=== PATIENT | male | born 1960 | race Caucasian/White ===

== ENCOUNTER 2017-01-15 07:37 | Emergency (ER) | payer MEDICARE, MEDICAID ==
[2017-01-15 07:44] VITALS: BP 158/116
--- NOTE | 2017-01-15 08:19 | EDM.PDOC ---
ED HPI GENERAL MEDICAL PROBLEM - General Chief Complaint: Lower Extremity Injury/Pain Stated Complaint: LT KNEE PAIN Time Seen by Provider: 01/15/17 07:51 Source of Information: Reports: Patient, RN Notes Reviewed History Limitations: Reports: No Limitations - History of Present Illness INITIAL COMMENTS - FREE TEXT/NARRATIVE: The patient states that he has advanced osteoarthritis of both knees, status post 4 surgeries on the left, 3 on the right. He states that he underwent a left knee injection of a steroid and Synvisc per Dr. Kevin Green's midlevel , Tasha Grayson, this past 01/13/2017. He states that he was doing well until last night, when he was trying to sleep in the left lateral decubitus position and he states that when he flexed his left knee, he developed sudden- onset severe pain lateral to his left patella. The pain resolved, but recurs every time he flexes his left knee. No prior similar symptoms. left lateral knee Pain Score (Numeric/FACES): 9 - Related Data Allergies Allergy/AdvReac Type Severity Reaction Status Date / Time potassium Allergy Nausea and Verified 01/15/17 07:44 Vomiting Home Meds: Home Meds . [No Known Home Meds] 04/11/14 [History] Past Medical History HEENT History: Reports: Other (See Below) (Bilateral keratoconus) Musculoskeletal History: Reports: Osteoarthritis (bilateral knees) Endocrine/Metabolic History: Reports: Obesity/BMI 30+ - Past Surgical History HEENT Surgical History: Reports: Eye Surgery (bilateral corneal transplants), Oral Surgery ([place] teeth extraction), Tonsillectomy GI Surgical History: Reports: Appendectomy Neurological Surgical History: Reports: C-Spine (ACDF) Musculoskeletal Surgical History: Reports: Other (See Below) (Right ankle reconstruction. 4 left knee surgeries (1 open, 3 arthroscopic), 3 right knee arthroscopies) Social & Family History - Family History Family Medical History: Noncontributory - Tobacco Use Smoking Status *Q: Never Smoker Second Hand Smoke Exposure: No - Caffeine Use Caffeine Use: Reports: None - Alcohol Use Alcohol Use History: Yes Days Per Week of Alcohol Use: 0 Alcohol Use Frequency: Rarely - Recreational Drug Use Recreational Drug Use: No - Living Situation & Occupation Living situation: Reports: , Alone Occupation: Retired Review of Systems - Review of Systems Review Of Systems: See Below Constitutional: Reports: No Symptoms Eyes: Reports: No Symptoms Ears: Reports: No Symptoms Nose: Reports: No Symptoms Mouth/Throat: Reports: No Symptoms Respiratory: Reports: No Symptoms Cardiovascular: Reports: No Symptoms GI/Abdominal: Reports: No Symptoms Genitourinary: Reports: No Symptoms Musculoskeletal: Reports: No Symptoms Skin: Reports: No Symptoms Neurological: Reports: No Symptoms Psychiatric: Reports: No Symptoms ED EXAM, GENERAL - Physical Exam Exam: See Below Exam Limited By: No Limitations General Appearance: Alert, WD/WN, No Apparent Distress Extremities: Other (No visible abnormality to the left knee, when compared to the right, such as swelling, effusion, erythema, or ecchymosis. There is tenderness to palpation lateral to the left patella, but no tenderness to either the quadriceps or patellar ligaments. No tenderness or laxity to stressing the lateral collateral ligament. There was a "pop" when stressing the medial collateral ligament. The patient is able to extend the knee to 0, and flex it to approximately 120. No crepitus or clicking noted with PROM. Neurovascular status of the left lower extremity is intact.) Course - Vital Signs Last Recorded V/S: Last Vital Signs Temp 36.6 C 01/15/17 07:41 Pulse 85 01/15/17 07:41 Resp 20 01/15/17 07:41 BP 158/116 H 01/15/17 07:41 Pulse Ox 97 01/15/17 07:41 - Re-Assessments/Exams Free Text/Narrative Re-Assessment/Exam: 01/15/17 08:17 The patient appears to have strained a tendon or ligament lateral to his left patella. There is no suggestion of a fracture, therefore an x-ray to would not be of any use. He may benefit from a MRI. I am recommending he follow-up with Dr. Brown's office. Departure - Departure Time of Disposition: 08:18 Disposition: Home, Self-Care 01 Condition: Good Clinical Impression: Left knee pain - Discharge Information Instructions: Knee Pain Referrals: Ruddy Brown MD [Physician] - Forms: ED Department Discharge Additional Instructions: You were seen in the emergency room for sudden-onset left knee pain. On examination, it appears you have strained a tendon or ligament in the knee. You may benefit from a MRI. Please follow-up with Dr. Brown. If any other problems, please do not hesitate to return to the ER.
== END 2017-01-15 08:40 | disposition home or self-care (01) ==
LOC: JD.ED 07:37
DX: M25.562 Pain in left knee (principal); M17.0 Bilateral primary osteoarthritis of knee; E66.9 Obesity, unspecified; Z68.43 Body mass index [BMI] 50.0-59.9, adult; Z88.8 Allergy status to other drugs, medicaments and biological substances; Z90.49 Acquired absence of other specified parts of digestive tract; Z98.890 Other specified postprocedural states
CPT/HCPCS: 99282; 99283

== ENCOUNTER 2018-07-24 15:11 | Emergency (ER) | payer MEDICAID, MEDICARE ==
[2018-07-24 15:24] VITALS: BP 160/98
--- NOTE | 2018-07-24 16:10 | EDM.PDOC ---
ED HPI GENERAL MEDICAL PROBLEM - General Chief Complaint: Upper Extremity Injury/Pain Stated Complaint: SHOULDER PAIN Time Seen by Provider: 07/24/18 15:15 Source of Information: Reports: Patient History Limitations: Reports: No Limitations - History of Present Illness INITIAL COMMENTS - FREE TEXT/NARRATIVE: 58 y/o male comes to ED today for complaints of R shoulder pain/weakness and a feeling of a "rip" after lifting milk this morning. He has not had anything like this before. He is unable to lift his arm overhead, reach, or externally rotate. PROM is painful. Pain is 10/10 with movement. No other symptoms at this time. No deformities noted on exam. Right Shoulder Pain Score (Numeric/FACES): 10 - Related Data Allergies Allergy/AdvReac Type Severity Reaction Status Date / Time potassium Allergy Nausea and Verified 07/24/18 15:17 Vomiting Home Meds: Home Meds 2 Different Eye Drops. 07/24/18 [History] Naproxen 500 mg PO Q12H 5 Days #10 tablet 07/24/18 [Rx] Past Medical History HEENT History: Reports: Other (See Below) Musculoskeletal History: Reports: Osteoarthritis Endocrine/Metabolic History: Reports: Obesity/BMI 30+ - Past Surgical History HEENT Surgical History: Reports: Eye Surgery, Oral Surgery, Tonsillectomy GI Surgical History: Reports: Appendectomy Neurological Surgical History: Reports: C-Spine Musculoskeletal Surgical History: Reports: Other (See Below) Social & Family History - Family History Family Medical History: Noncontributory - Tobacco Use Smoking Status *Q: Never Smoker - Caffeine Use Caffeine Use: Reports: None - Living Situation & Occupation Living situation: Reports: , Alone Occupation: Retired Review of Systems - Review of Systems Review Of Systems: See Below Constitutional: Reports: No Symptoms. Denies: Chills, Fever Eyes: Reports: No Symptoms Ears: Reports: No Symptoms Respiratory: Reports: No Symptoms Cardiovascular: Reports: No Symptoms GI/Abdominal: Reports: No Symptoms Musculoskeletal: Reports: Shoulder Pain Skin: Reports: No Symptoms Neurological: Reports: Weakness (R shoulder) Psychiatric: Reports: No Symptoms ED EXAM, GENERAL - Physical Exam Exam: See Below Exam Limited By: No Limitations General Appearance: Alert Eye Exam: Bilateral Eye: PERRL Ears: Normal External Exam, Hearing Grossly Normal Head: Atraumatic, Normocephalic Neck: Normal Inspection, Supple, Non-Tender, Full Range of Motion Respiratory/Chest: No Respiratory Distress, Lungs Clear, Normal Breath Sounds, No Accessory Muscle Use, Chest Non-Tender Cardiovascular: Normal Peripheral Pulses, Regular Rate, Rhythm, No Edema, No Gallop, No JVD, No Murmur, No Rub Peripheral Pulses: 3+: Radial (L), Radial (R) GI/Abdominal: Normal Bowel Sounds, Soft, Non-Tender, No Organomegaly, No Distention, No Abnormal Bruit, No Mass Extremities: Normal Inspection, Limited Range of Motion (L shoulder), Other ( TTP R shoulder) Neurological: Alert, Oriented, CN II-XII Intact, Normal Cognition, Normal Gait, Normal Reflexes, No Motor/Sensory Deficits Psychiatric: Normal Affect, Normal Mood Skin Exam: Warm, Dry, Intact, Normal Color, No Rash Course - Vital Signs Last Recorded V/S: Last Vital Signs Temp 96.8 F 07/24/18 15:18 Pulse 104 H 07/24/18 15:18 Resp 20 07/24/18 15:18 BP 160/98 H 07/24/18 15:18 Pulse Ox 97 07/24/18 15:18 Departure - Departure Time of Disposition: 16:11 Disposition: Home, Self-Care 01 Condition: Fair Clinical Impression: Rotator cuff tear - Discharge Information *PRESCRIPTION DRUG MONITORING PROGRAM REVIEWED*: Not Applicable *COPY OF PRESCRIPTION DRUG MONITORING REPORT IN PATIENT ROMI: Not Applicable Prescriptions: Naproxen 500 mg PO Q12H 5 Days #10 tablet Instructions: Shoulder Pain, [id number], Rotator Cuff Tear Referrals: Baylee Bray NP [Primary Care Provider] - Ruddy Brown MD [Physician] - Additional Instructions: You were seen in the ED today for R shoulder pain and weakness after feeling a "rip". Your physical exam is suspicious for rotator cuff tear. At this time, Xray is not deemed necessary and it is recommended you follow up with orthopedic , Dr. Brown, for further treatment/diagnosis. If you are unable to get an appointment, then please follow up with your primary care provider who can help you set one up. Please return to the ED if new or worsening symptoms. You will be sent home with medication for pain.
== END 2018-07-24 16:23 | disposition home or self-care (01) ==
LOC: JD.ED 15:11
DX: S46.011A Strain of muscle(s) and tendon(s) of the rotator cuff of right shoulder, initial encounter (principal); E66.9 Obesity, unspecified; Z88.8 Allergy status to other drugs, medicaments and biological substances; Z98.890 Other specified postprocedural states; Z90.49 Acquired absence of other specified parts of digestive tract; X50.0XXA Overexertion from strenuous movement or load, initial encounter
CPT/HCPCS: 99283

== ENCOUNTER 2021-09-21 18:10 | Emergency (ER) | payer MEDICARE, MEDICAID ==
[2021-09-21 18:39] VITALS: BP 150/103; PULSE 94
[2021-09-21] MEDS ORDERED: HYDROmorphone 0.5 MG/0.5 ML Syringe IM ONE (18:42)
[2021-09-21] MEDS ORDERED: Amoxicillin/Clavulanate K 875-125 MG Tab PO ONE (18:42)
== END 2021-09-21 19:15 | disposition home or self-care (01) ==
LOC: JD.ED 18:10
DX: K02.9 Dental caries, unspecified (principal); E66.9 Obesity, unspecified; Z68.43 Body mass index [BMI] 50.0-59.9, adult; Z88.8 Allergy status to other drugs, medicaments and biological substances
CPT/HCPCS: 96372; 99282; A9270; J1170; 99283

== ENCOUNTER 2023-09-02 07:13 | Emergency (ER) | payer MEDICARE, MEDICAID ==
[2023-09-02 08:08] LABS: BASOPHILS PERCENT AUTO 0.3 % (0.0-1.0); EOSINOPHILS ABSOLUTE AUTO 0.1 K/mm3 (0.0-0.4); EOSINOPHILS PERCENT AUTO 0.4 % (0.0-6.0); HEMATOCRIT 52.9 % (42.0-52.0); HEMOGLOBIN 17.3 gm/dl (14.0-18.0); IMMATURE GRAN ABSOLUTE AUTO 0.16 K/mm3 (0.00-0.05); IMMATURE GRAN PERCENT AUTO 1.3 % (0.0-0.4); LYMPHOCYTES ABSOLUTE AUTO 0.6 K/mm3 (1.0-4.8); LYMPHOCYTES PERCENT AUTO 5.2 % (24.0-44.0); MEAN CORPUSCULAR HEMOGLOBIN 29.4 pg (28.0-32.0); MEAN CORPUSCULAR HGB CONC 32.7 g/dl (32.0-36.0); MEAN PLATELET VOLUME 9.9 fl (9.4-12.4); MONOCYTES ABSOLUTE AUTO 0.7 K/mm3 (0.0-0.8); MONOCYTES PERCENT AUTO 5.8 % (0.0-8.0); NEUTROPHILS ABSOLUTE AUTO 10.8 K/mm3 (1.8-7.7); PLATELET COUNT,PLT 305 K/mm3 (150-400); RED BLOOD CELL COUNT 5.88 M/mm3 (4.52-5.90); WHITE BLOOD CELL COUNT,WBC 12.42 K/mm3 (3.9-11.3)
[2023-09-02 08:27] LABS: A/G RATIO 0.8 (1-2); ALBUMIN 3.8 g/dl (3.4-5.0); ANION GAP 16.6 (5-15); BILIRUBIN TOTAL 0.8 mg/dL (0.2-1.0); BUN/CREATININE RATIO 16.4 (14-18); CALCIUM 9.8 mg/dL (8.5-10.1); CREATININE 1.1 mg/dL (0.7-1.3); EST CRCL DRUG DOSING (CG) 65.1 mL/min; MAGNESIUM 1.7 mg/dL (1.8-2.4); POTASSIUM,K 4.6 mEq/L (3.5-5.1); PROTEIN TOTAL,TP 8.4 g/dl (6.4-8.2)
[2023-09-02] MEDS: Ondansetron 4 MG/2 ML SDV IVPUSH ONE (08:34)
[2023-09-02] MEDS: Sodium Chloride 0.9% 10 ML Syringe FLUSH PRN (08:34)
[2023-09-02 09:37] LABS: CORONAVIRUS COVID-19 NAA NEGATIVE (NEGATIVE); INFLUENZA A NAA NEGATIVE (NEGATIVE); RESPIRATORY SYNCYTIAL VIR NAA NEGATIVE (NEGATIVE)
[2023-09-02 10:20] VITALS: BP 152/79; PULSE 74
== END 2023-09-02 10:14 | disposition home or self-care (01) ==
LOC: JD.ED 07:13
DX: A08.4 Viral intestinal infection, unspecified (principal); E66.9 Obesity, unspecified; Z88.8 Allergy status to other drugs, medicaments and biological substances; Z79.899 Other long term (current) drug therapy; Z86.19 Personal history of other infectious and parasitic diseases; Z68.39 Body mass index [BMI] 39.0-39.9, adult
CPT/HCPCS: 0241U; 36415; 71046; 80053; 83690; 83735; 84484; 85025; 93005; 96374; 99285; J2405; J3490; 93010; 99284